=== PATIENT | male | born 1980 | race Caucasian/White ===

== ENCOUNTER 2025-02-20 09:38 | Outpatient (CLI) | payer BC, SELFPAY ==
--- NOTE | 2025-02-20 | ECG_ITS ---
Test Date: 2025-02-20 10:03:19 Measurements Intervals [place] Rate: 67 P: 2 NM: 152 QRS: 3 QRSD: 100 T: 22 QT: 366 QTc: 387 Interpretive Statements SINUS RHYTHM MINIMAL Q WAVES- HIGH LATERAL LEADS BORDERLINE ECG No previous ECG available for comparison Electronically Signed On 02-20-2025 10:30:19 CDT by Amarjit Leon D.O.
--- OUTSIDE RECORDS SUMMARY | 2025-02-20 10:18 | XMS_ITS | Encounter Summary ---
Author Organization [facility] Address [address] [place] [address] Care Team Providers Care Hr Leader Name Role Phone Unavailable Primary Care Provider Unavailabl e Encounter Details Date Type Department Care Team (Late st Contact Info) Description 11/17/2023 Lab Requisition [facility] - DermPath Lab [address] [place] [id number] Heidi Gaviria MD [address] [place] [address] Social History Tobacco Use Types Packs/Day Years Used Date Smoking Tobacco: Never Assessed Sex and Gender Information Value Date Recorded Sex Assigned at Not on file 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 Gender Identity Not on file Sexual Orientation Not on file documented as of this encounter Plan of Treatment Not on file documented as of this encounter Procedures Procedure Name Priority Date/Time Associated Diagnosis Comments DERMATOPATHOLOGY Routine 11/17/2023 12:2 0 PM CDT documented in this encounter Results * DERMATOPATHOLOGY (11/17/2023 12:20 PM CDT) Case Report Dermatopathology Report Case: [id number] Authorizing Provider: Heidi Gaviria MD Collected: 11/17/2023 12:20 PM Ordering Location: [facility] - Received: 11/18/2023 11:46 AM DermPath Lab Pathologist: Martine Stanford MD Specimen: Skin, mid crown 2:14 PM CDT DERMATOPATHOLOGY LABORATORY Final Diagnosis Specimen A. SKIN, mid crown: BASAL CELL CARCINOMA, NODULAR TYPE (C44.41) 4 2:14 PM CDT DERMATOPATHOLOGY LABORATORY at 1414 CDT Clinical History R/o BCC 2:14 PM CDT DERMATOPATHOLOGY LABORATORY Gross Description Specimen A: Received is one formalin filled container labeled with the patient's name and designated mid crown. The specimen consists of a shave biopsy measuring 7x6x1 mm. Jar 0. 2:14 PM T DERMATOPATHOLOGY LABORATORY Microscopic Description Specimen A. SKIN, mid crown: Within the dermis there are aggregates of basaloid cells with a high nuclear to cytoplasmic ratio and peripheral palisading. 2:14 PM T DERMATOPATHOLOGY LABORATORY Disclaimer An external and internal positive and negative controls are appropriate for the histochemical, immunohistochemical and immunofluorescence stain(s) in this case (if any), except where stated explicitly. The performance characteristics of the stain(s) cited in this report were developed and its performance characteristic determined by the Dermatopathology Laboratory at [facility], directed by Dr. Jacqui Stanford. These tests need not be, and therefore are not, approved by the [place] Food and Drug Administration. The tests are used for clinical purposes. Billing Codes Specimen Charges Stain Charges 19492 1 2:14 PM CDT DERMATOPATHOLOGY LABORATORY Embedded Images 2:14 PM CDT DERMATOPATHOLOGY LABORATORY Pathology/Cytolo gy TISSUE SPECIMEN FROM SKIN / Unknown 11/17/2023 12:20 PM CDT 11/18/2023 11:46 AM CDT us Heidi Gaviria MD LAB - PATHOLOGY/CYTOLOGY ORDERA BLES Final Result DERMATOPATHOLOGY LABORATORY [facility] - Department of Dermatology [address], [address] [phone] documented in this encounter Visit Diagnoses Not on filedocumented in this encounter
--- OUTSIDE RECORDS SUMMARY | 2025-02-20 10:18 | XMS_ITS | Encounter Summary ---
Author Organization [facility] Address [address] [place] [address] Care Team Providers Care Electrolysis Operator Name Role Phone Unavailable Primary Care Provider Unavailabl e Encounter Details Date Type Department Care Team (Late st Contact Info) Description 09/16/2023 Lab Requisition [facility] - DermPath Lab [address] [facility] [place] [address] Sandra Miner MD [address] 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 - Received: 09/17/2023 01:07 PM DermPath Lab Pathologist: Haley Tamayo MD Specimens: A) - Skin, right preauricular B) - Skin, mid crown 1:25 PM CDT DERMATOPATHOLOGY LABORATORY Final Diagnosis Specimen A. SKIN, right preauricular: BASAL CELL CARCINOMA, NODULAR TYPE (C44.319) Specimen B. SKIN, mid crown: BASAL CELL CARCINOMA, NODULAR TYPE (C44.41) 1:25 PM CDT DERMATOPATHOLOGY LABORATORY at 1325 CDT Clinical History A-B: r/o NMSC, Irritated, Non-Healing 4 1:[address] [facility] DERMATOPATHOLOGY LABORATORY Gross Description Specimen A: Received is one formalin filled container labeled with the patient's name and designated right preauricular. The specimen consists of a shave biopsy measuring 7x4x1 mm. Jar 0. Specimen B: Received is one formalin filled container labeled with the patient's name and designated mid crown. The specimen consists of a shave biopsy measuring 8x5x2 mm. Jar 0. 4 1:[address] [facility] DERMATOPATHOLOGY LABORATORY Microscopic Description Specimen A. SKIN, right preauricular: Within the dermis there are aggregates of basaloid cells with a high nuclear to cytoplasmic ratio and peripheral palisading. Specimen B. SKIN, mid crown: Within the dermis there are aggregates of basaloid cells with a high nuclear to cytoplasmic ratio and peripheral palisading. 4 1:25 PM T DERMATOPATHOLOGY LABORATORY Disclaimer An external and internal positive and negative controls are appropriate for the histochemical, immunohistochemical and immunofluorescence stain(s) in this case (if any), except where stated explicitly. The performance characteristics of the stain(s) cited in this report were developed and its performance characteristic determined by the Dermatopathology Laboratory at [facility], directed by Dr. Jacqui tSanford. These tests need not be, and therefore are not, approved by the [place] Food and Drug Administration. The tests are used for clinical purposes. Billing Codes Specimen Charges Stain Charges 30540 00943 1 1 4 1:25 PM CDT DERMATOPATHOLOGY LABORATORY Embedded Images 4 1:25 PM T DERMATOPATHOLOGY LABORATORY Pathology/Cytology TISSUE SPECIMEN FROM SKIN / Unknown 09/16/2023 9:20 AM FIELD SERVICER 09/17/2023 1:07 PM FIELD SERVICER Miscellaneous samples (specimen) TISSUE SPECIMEN FROM SKIN / Unknown 09/16/2023 9:20 AM FIELD SERVICER 09/17/2023 1:07 PM FIELD SERVICER us Sandra Miner MD LAB - PATHOLOGY/CYTOLOGY OR DERABLES Final Result DERMATOPATHOLOGY LABORATORY [facility] - Department of Dermatology [facility] Specialized Medicine [address] [place] [address], [address] [phone] documented in this encounter Visit Diagnoses Not on filedocumented in this encounter
--- OUTSIDE RECORDS SUMMARY | 2025-02-20 10:18 | XMS_ITS | Encounter Summary ---
Author Organization 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 Historical Provider Final Res ult documented in this encounter Visit Diagnoses Not on filedocumented in this encounter Additional Health Concerns Infection Onset Date Last Indicated Resolved Time COVID: Suspected 07/29/2021 07/29/2021 07/30/2021 3:13 AM ACCOUNTING ADMINISTRATOR COVID19 07/29/2021 07/29/2021 08/08/2021 3:08 AM ACCOUNTING ADMINISTRATOR COVID: Suspected 08/13/2022 08/13/2022 08/13/2022 11:49 AM ACCOUNTING ADMINISTRATOR COVID: Suspected 04/29/2023 04/29/2023 04/29/2023 11:49 AM CDT documented as of this encounter Care Teams Principal Planner Relationship Specialty Start Date End Date Selwyn Mosqueda Jr., PA [address] [place] [phone] PCP - General Family Medicine 08/20/20 documented as of this encounter
--- OUTSIDE RECORDS SUMMARY | 2025-02-20 10:18 | XMS_ITS | Clinical Summary ---
Author Organization [facility] [employer] Address [address] [place] [address] Care Team Providers Care Want Ad Clerk Name Role Phone Unavailable Primary Care Provider Unavailabl e Source Comments [facility] [employer],non-owned Affiliates and Associated Physician Practices is amultiple site organization consisting of ambulatory clinics and hospital sitesin [place], [place], [place] and [place]. This disclosure is being madepursuant to the Care Everywhere program and may not contain all information available regarding this patient. 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 Gender Identity Not on file Sexual Orientation Not on file Plan of Treatment Health Maintenance Due Date Last Done Comments COLOGUARD (AGES 45-75) - COL ON CA SCREENING 1979 COLON MONITORING 1979 COLONOSCOPY - COLON CA SCREENING 1979 CT COLONOGRAPHY - COLON CA SCREENING 1979 Colorectal Cancer Screening 1979 FIT - COLON CA SCREENING 1979 FLEX SIG - COLON CA SCREENING 1979 LIPID TESTING 1979 HIV SCREENING 1994 HEPATITIS C SCREENING 08/12/1997 DTAP/TDAP/TD VACCINES (1 - Tdap) 1998 HEPATITIS B VACCINE (1 of 3 - 19+ 3-dose series) 1998 HPV VACCINE (1 - 3-dose SCDM series) 2006 COVID-19 VACCINE ( - 2023-2 5 season) 2024 DEPRESSION SCREENING 07/12/2024 INFLUENZA VACCINE (#1) 2025 ZOSTER VACCINE (1 of 2) 2029 HIB VACCINE Aged Out No longer eligi ble based on patient's age to complete this topic MENINGOCOCCAL (Group B) VACC INE SHARED DECISION-MAKING Aged Out No longer eligibl e based on patient's age to complete this topic MENINGOCOCCAL GROUPS A/C/Y/W VACCINE Aged Out No longer eligible b ased on patient's age to complete this topic PNEUMOCOCCAL VACCINE Aged Out No long er eligible based on patient's age to complete this topic Insurance [employer], [facility]
--- OUTSIDE RECORDS SUMMARY | 2025-02-20 10:18 | XMS_ITS | Encounter Summary ---
Author Organization 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 Historical Provider Final Res ult * SCAN - PATHOLOGY (03/25/2017 12:00 AM CDT) Narrative 03/25/2017 12:00 AM CDT Ordered by an unspecified provider. Historical Provider Final Res ult documented in this encounter Visit Diagnoses Not on filedocumented in this encounter Additional Health Concerns Infection Onset Date Last Indicated Resolved Time COVID: Suspected 07/29/2021 07/29/2021 07/30/2021 3:13 AM FIRE TRUCK DRIVER COVID19 07/29/2021 07/29/2021 08/08/2021 3:08 AM FIRE TRUCK DRIVER COVID: Suspected 08/13/2022 08/13/2022 08/13/2022 11:49 AM FIRE TRUCK DRIVER COVID: Suspected 04/29/2023 04/29/2023 04/29/2023 11:49 AM CDT documented as of this encounter Care Teams Dipper Clock And Watch Hands Relationship Specialty Start Date End Date Selwyn Mosqueda Jr., PA [address] [place] [id number] PCP - General Family Medicine 08/20/20 documented as of this encounter
--- OUTSIDE RECORDS SUMMARY | 2025-02-20 10:18 | XMS_ITS | Clinical Summary ---
Author Organization [address] Address [address] [address] Care Team Providers Care Specialist Managers Name Role Phone KATHIE Mosqueda Jr., Selwyn Wang Primary Care Provide r Allergies No known active allergies Medications guaiFENesin-co deine (GUAITUSS AC) liquid 100-10 mg/5 mLIndications: Cough Take 5-10 mL by mouth nightly as needed for cough 120 mL 1 3 Active hydrocortisone 2.5 % cream 4 Active traMADoL (ULTRAM) 50 mg tabletIndicati ons:Chronic bilateral low back pain without sciatica Take 1 tablet (50 mg total) by mouth 3 (three) times a day 30 tablet 4 Active Additional Information Patient not taking.Reported on 01/23/2025 LORazepam (ATIVAN) 0.5 mg tablet 1 tab 30 minutes prior to MRI 1 tablet [address] (VOLTAREN) 75 mg EC tabletIndicati ons:Chronic bilateral low back pain without sciatica Take 1 tablet (75 mg total) by mouth 2 (two) times a day as needed for pain 60 tablet 3 4 Active benzonatate (TESSALON) 200 mg capsule Take 1 capsule (200 mg total) by mouth 3 (three) times a day as needed for cough 60 capsule 4 Active omeprazole (PriLOSEC) 40 mg capsuleIndicat ions:Treatment of Non-Bleeding Gastric Disorder TAKE 1 CAPSULE (40 MG TOTAL) BY MOUTH DAILY. 90 capsule 1 5 Active methylPREDNISo lone (Medrol, Kleber,) 4 mg DosepackIndica tions:Myofasci al pain syndrome of lumbar spine Take 1 tablet (4 mg total) by mouth as directed Take as directed on package 1 packet 5 Active tiZANidine (ZANAFLEX) 2 mg tabletIndicati ons:Myofascial pain syndrome of lumbar spine Take 1 tablet (2 mg total) by mouth nightly as needed for muscle spasms 30 tablet 1 5 Active tiZANidine (ZANAFLEX) 4 mg tabletIndicati ons:Chronic bilateral low back pain without sciatica TAKE 1 TABLET BY MOUTH EVERY DAY AT BEDTIME NEEDED 30 tablet 1 4 01/24/20 25 Discontin ued(Alter emily therapy) methylPREDNISo lone (Medrol, Kleber,) 4 mg DosepackIndica tions:Chronic bilateral low back pain without sciatica Take 1 tablet (4 mg total) by mouth as directed Take as directed on package 1 packet 5 01/24/20 25 Discontin ued(Reord ) Hospital, Clinic, or Other Facility Administered Medication Ordered Dose Route Frequency Start Date End Date Status lidocaine (XYLOCAINE) 10 mg/mL (1 %) injection 4 mLIndications:Admi nistration of Local Anesthesia 4 mL One-Time Injection 01/23/2025 01/23/2025 Ended methylPREDNISolone acetate (DEPO-medrol) injection 160 mgIndications:Myof ascial pain syndrome of lumbar spine 160 mg intra-artic One-Time Injection 01/23/2025 01/23/2025 Ended Active Problems Problem Noted Date Diagnosed Date Gastroesophageal reflux disease without esophagi tis 09/10/2022 Esophageal spasm 05/28/2018 Overview (01/04/2023): Last Assessment & Plan: 37 yo male with concern for esophageal spasm vs stricture vs other motility concern, with continued nausea and vomiting. Plan for NPO now, with IV fluids and GI eval in the AM - Will not order labs at this time per GI - IV Zofran and reglan PRN N/V - Pt maintaining airway without difficulty, no need to intubate. - Will likely need c-scope in AM Sciatica of right side 12/13/2017 Sciatica of left side 12/13/2017 Anxiety 02/23/2017 Dysphagia 02/23/2017 BMI 30.0-30.9,adult 02/23/2017 Lumbago 04/26/2013 Pain of foot 01/09/2013 Instability of shoulder joint 03/03/2012 Skin benign neoplasm 06/08/2011 Keratosis, senilis 06/08/2011 Arthralgia of shoulder 03/31/2010 Encounters Date Type Department Care Team Description 02/14/2025 Telephone [facility] [address] [place] [address] [address] [place] [address] Cecelia Saldana NP other 01/23/2025 10:00 AM CDT Office Visit [facility] [address] [place] [address] [address] [place] [address] Cecelia Saldana NP Myofascial pain syndrome of lumbar spine (Primary Dx); Chronic bilateral low back pain without sciatica; Foraminal stenosis of lumbar region, mild bilateral L5-S1; Lumbar facet arthropathy, multilevel, Moderate bilateral L3-L4, L4-L5, L5-S1; Degeneration of intervertebral disc of lumbar region, mild multilevel with discogenic back pain 12/22/2024 Telephone [facility] [address] [place] [address] [address] [place] [address] Cecelia Saldana NP Advice Only from Last 3 Months Immunizations Immunization Administration Dates Next Due DTP 02/16/1985, 1,05/22/1980,04/05/1980, 0 Hep B, Unspecified 02/09/2019 Influenza, Unspecified 09/17/2023(Deferr ed: Patient Refused),04/29/2023(Deferred: Patient Refused),04/11/2022(Deferred: Patient Refused),09/02/2020(Deferred: Patient Refused) MMR 12/20/1989,12/07/1980 OPV 02/16/1985, 1,05/22/1980,04/24/1980, 0 Td, adsorbed 02/14/1994 Tdap 11/21/2021,02/09/2019 Surgical History Surgery Date Site/Laterality Comments ANKLE SURGERY Left KNEE ARTHROSCOPY Medical History Medical History Date Comments Lumbar spondylosis 01/08/2021 Bulge of lumbar disc without myelopathy Lumbar facet arthropathy Foraminal stenosis of lumbar region DDD (degenerative disc disease), thoracic Retrolisthesis of vertebrae-minimal L2 on L3, L5 on S1 12/15/2021 DDD (degenerative disc disease), lumbar Piriformis syndrome, right Family History Medical History Relation Name Comments Heart disease Father Marcus Andrea Hypertension Father Marcus Andrea Relation Name Status Comments Father Marcus Andrea Social History Tobacco Use Types Packs/Day Years Used Date Smoking Tobacco: Never Smokeless Tobacco: Never Tobacco Cessation:Counseling Given: Not Answered AUDIT-C Answer Date Recorded Q1: How often do you have a drink containing alc ohol? 2-4 times a month 03/27/2021 Q2: How many drinks containi ng alcohol do you have on a typical day when you are drinking? 1 or 2 03/27/2021 Q3: How often do you have si x or more drinks on one occasion? 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 Gender Identity Not on file Sexual Orientation Not on file Obstetrics History Last Filed Vital Signs Vital Sign Reading Time Taken Comments Blood Pressure 118/74 09/17/2023 8:23 AM ATTENDANCE OFFICER Pulse 62 09/17/2023 8:23 AM ATTENDANCE OFFICER Temperature 36.6 C (97.9 F) 09/17/2023 8:23 AM ATTENDANCE OFFICER Respiratory Rate 16 09/17/2023 8:23 AM ATTENDANCE OFFICER Oxygen Saturation 99% 09/17/2023 8:23 AM ATTENDANCE OFFICER Inhaled Oxygen Concentration - - Weight 111.6 kg (246 lb) 01/23/2025 10:08 AM CDT Height 188 cm (6' 2) 01/23/2025 10:08 AM CDT Body Mass Index 31.58 01/23/2025 10:08 AM CDT Plan of Treatment Health Maintenance Due Date Last Done Comments Colon Cancer Screening-Colonoscopy 1979 Hepatitis C Screening 1979 Varicella Vaccines (1 of 2 - 13+ 2-dose series) 1992 HPV Vaccines (1 - 3-dose SCDM series) 2006 Regular Well Visit/Exam 18-64 09/11/2023 09/10/2022, 09/10/2022 Covid-19 Vaccine (3 - 2023- season) 2024 11/01/2020, 10/04/2020 Depression Screening 09/16/2024 09/17/2023, 09/10/2022, 06/13/2021, Additional history exists Influenza Vaccine (#1) 2025 DTaP/Tdap/Td Vaccine (8 - Td or Tdap) 11/22/2031 11/21/2021, 02/09/2019, 02/14/1994, Additional history exists Hepatitis B Screening Completed 02/09/2019 Pneumococcal vaccine <65 Aged Out No longer eligible based on patient's age to complete this topic Procedures Procedure Name Priority Date/Time Associated Diagnosis Comments MD INJECTION SINGLE/SHIP LOADER TRIGGER POINT 1/2 MUSCLES Routine 01/23/2025 10:00 AM CDT Myofascial pain syndrome of lumbar spine from Last 3 Months Results * MD INJECTION SINGLE/SHIP LOADER TRIGGER POINT 1/2 MUSCLES (01/23/2025 10:00 AM CDT) Narrative Cecelia Saldana NP - 01/23/2025 10:00 AM CDT Cecelia Saldana NP 01/25/2025 7:11 PM Trigger Point Injection Performed by: Cecelia Saldana NP Authorized by: eCcelia Saldana NP Consent Given by: Patient Site marked: the procedure site was marked Timeout: prior to procedure the correct patient, procedure, and site was verified Consent obtained:: Verbal Risks discussed, including, but not limited to:: Pain and repeat procedure Alternatives discussed:: Alternative treatment, delayed treatment and no treatment Site/side marked: Yes Indications: Myalgia Location: L lumbar paraspinal, R lumbar paraspinal, L quadratus lumborum and R quadratus lumborum Local anesthetic: Ethyl chloride spray Ultrasound guidance: No Needle size: 22 G Number of muscles: 1 or 2 Approach: Posterior Medications: 160 mg methylPREDNISolone acetate 40 mg/mL; 4 mL lidocaine 10 mg/mL (1 %) Patient tolerance: Patient tolerated the procedure well with no immediate complications Cecelia Saldana NATURAL SCIENCE MANAGER IN CLINIC/BEDSIDE ORDERABLE S Final Result from Last 3 Months Insurance [employer] O[employer] ACCESS OOS Member Subscriber Plan / Payer (Ef fective 2020-Present) Name:Dwight Andrea Relation to Subscriber:Self Name:Dwight Andrea Payer ID:[id number] ([facility]) Type: ALLIANCE Address: [facility] [address] [place] [id number] Care Teams Specialist Managers Relationship Specialty Start Date End Date Selwyn Mosqueda Jr., PA [address] [place] [phone] PCP - General Family Medicine 08/20/20
== END 2025-02-20 09:39 | disposition home or self-care (01) ==
PROVIDERS: PCP Physician Assistant; Visit Provider Podiatrist Foot & Ankle Surgery
DX: R03.0 Elevated blood-pressure reading, without diagnosis of hypertension (principal); R94.31 Abnormal electrocardiogram [ECG] [EKG]
CPT/HCPCS: 93005